=== PATIENT | male | born 1975 | race Hispanic/Latino ===

== ENCOUNTER 2025-05-17 18:20 | Emergency (ER) | payer BC ==
[2025-05-17 19:18] LABS: #Basophils 0.04 10x3/uL (0.0-0.2); #Eosinophils 0.03 10x3/uL (0.0-0.7); #Monocytes 0.47 10x3/uL (0.11-0.59); #Neutrophils 5.86 10x3/uL (1.40-6.50); %Basophils 0.5 % (0.0-1.0); %Eosinophils 0.3 % (0.0-10.0); %Lymphocytes 26.2 % (21.0-51.0); %Monocytes 5.4 % (0.0-10.0); %Neutrophils 67.4 % (42.0-75.0); Hematocrit 42.9 % (42.0-52.0); Hemoglobin 15.7 g/dL (14.0-18.0); Mean Corpuscular Hemoglobin 32.2 pg (27.0-31.0); Mean Corpuscular Volume 88.1 fL (78.0-98.0); Platelet Count 207 10x3/uL (130-400); Red Blood Cell (RBC) Count 4.87 mill/uL (4.70-6.10); White Blood Cell (WBC) Count 8.70 10x3/uL (4.8-10.8)
[2025-05-17 19:30] LABS: Actual Bicarbonate (HCO3v) 22.9 mEq/L (22-28); Base Excess -1.0 mEq/L (-2.0 to +3.0); Calcium, Ionized (venous) 1.14 mmol/L (1.16-1.32); Chloride (VBG) 97 mmol/L (98-106); Hematocrit-VBG 46 % (42.0-52.0); Hemoglobin (Hb) 15.6 g/dL (13.1-17.2); Potassium (VBG) 4.38 mmol/L (3.70-5.30); Sodium 135 mmol/L (133-146)
[2025-05-17 19:49] LABS: ALT (SGPT) 22 U/L (Less than 45); Albumin 4.0 g/dL (3.1-4.5); Alkaline Phosphatase 157 U/L (40-110); Anion Gap 17 mmol/L (10-20); BUN (Urea Nitrogen) 19 mg/dL (8.4-25.7); Bilirubin, Total 0.2 mg/dL (0.3-1.2); Calc. Creatinine Clearance 0 mL/min (70-130); Calcium 8.9 mg/dL (7.8-10.44); Carbon Dioxide 20 mmol/L (22-29); Chloride 96 mmol/L (98-107); Globulin 4.3 g/dL (2.4-3.5); Glucose 411 mg/dL (70-105); Lipase 31 U/L (8-78); Potassium 4.2 mmol/L (3.5-5.1); Sodium 129 mmol/L (136-145)
[2025-05-17 19:50] LABS: Bacteria/HPF None Seen HPF (None Seen); CAUTI Indications for Culture Acute Hematuria; Glucose, Urine (Dipstick) Greater than 1000 mg/dL (Negative); Leukocyte Negative Leu/uL (Negative); Protein, Urine (Dipstick) Negative (Neg-Trace); RBC/HPF 0-3 HPF (0-3); Specific Gravity, Urine 1.036 (1.002-1.036); WBC/HPF 0-3 HPF (0-3)
[2025-05-17 19:51] LABS: Urine Culture Reflex No No
[2025-05-17 19:58] LABS: AST (SGOT) 21 U/L (11-34)
== END 2025-05-17 21:48 | disposition home or self-care (01) ==
LOC: ERS 18:20
DX: E11.65 Type 2 diabetes mellitus with hyperglycemia (principal)
CPT/HCPCS: 36416; 71046; 80053; 81001; 82805; 82943; 83525; 83690; 84681; 85025; 96374; J1815